=== PATIENT | female | born 1985 ===

== ENCOUNTER 2018-03-14 16:31 | Emergency (ER) | payer OTHER ==
[2018-03-14] MEDS ORDERED: Sodium Chloride 0.9% 1,000 ML IV STA (17:11)
--- NOTE | 2018-03-14 17:40 | ED PDOC ---
Arrival/HPI - General Chief Complaint: Headache Time Seen by Provider: 03/14/18 16:36 Historian: Patient - History of Present Illness Narrative History of Present Illness (Text): 03/14/18 17:36 32-year-old female presents today with a headache that started around noon today. Patient states the headache started in the right side of the forehead and over the right eye. Patient states the headache has been gradually increasing. Patient states there was a moment when she felt a period of blurred vision in the right eye. Patient is complaining of nausea no vomiting. She denies chest pain or shortness of breath. She denies neck pain. Denies fevers or chills. Patient states every once in a while she gets a headache but has never been associated with blurred vision before. Patient denies any blurred vision at present time. She denies urinary symptoms. She denies abdominal pain. She denies fevers. She denies back pain. She denies weakness or tingling in the extremities. No medications have been taken for pain at home. No other complaints. Past Medical History - Provider Review Nursing Documentation Reviewed: Yes - Travel History Have you recently traveled outside [place] w/in the past 3 mons?: No - Infectious Disease Hx of Infectious Diseases: None - Reproductive Menopause: No - Psychiatric Hx Substance Use: No - Anesthesia Hx Anesthesia: No - Suicidal Assessment Feels Threatened In Home Enviroment: No Family/Social History - Physician Review Nursing Documentation Reviewed: Yes Family/Social History: Unknown Family HX Smoking Status: Never Smoked Hx Alcohol Use: No Hx Substance Use: No Allergies/Home Meds Allergies/Adverse Reactions: Allergies No Known Allergies Allergy (Unverified 05/03/14 14:55) Review of Systems - Review of Systems Constitutional: absent: Fatigue, Fevers Eyes: Vision Changes (blurred vision in right eye; resolved). absent: Photophobia, Eye Pain Respiratory: absent: SOB, Cough Cardiovascular: absent: Chest Pain, Palpitations Gastrointestinal: Nausea. absent: Abdominal Pain, Constipation, Diarrhea, Vomiting Genitourinary Female: absent: Dysuria, Frequency Musculoskeletal: absent: Arthralgias, Back Pain, Neck Pain Skin: absent: Rash, Pruritis Neurological: Headache. absent: Dizziness Psychiatric: absent: Anxiety, Depression Physical Exam Vital Signs Reviewed: Yes Vital Signs Temp Pulse Resp BP Pulse Ox 03/14/18 19:25 98.4 F 69 16 142/87 100 03/14/18 16:35 98.4 F 76 18 130/81 99 03/14/18 16:32 98.4 F 76 18 130/81 99 Temperature: Afebrile Blood Pressure: Normal Pulse: Regular Respiratory Rate: Normal Appearance: Positive for: Well-Appearing, Non-Toxic, Comfortable Pain Distress: None Mental Status: Positive for: Alert and Oriented X 3 - Systems Exam Head: Present: Atraumatic Pupils: Present: PERRL Extroacular Muscles: Present: EOMI Conjunctiva: Present: Normal Ears: Present: Normal, NORMAL TM Mouth: Present: Moist Mucous Membranes Pharnyx: Present: Normal. No: ERYTHEMA, EXUDATE Nose (External): Present: Atraumatic Nose (Internal): Present: Normal Inspection Neck: Present: Normal Range of Motion, Trachea Midline. No: MIDLINE TENDERNESS , Paraspinal Tenderness Respiratory/Chest: Present: Clear to Auscultation, Good Air Exchange. No: Respiratory Distress, Accessory Muscle Use Cardiovascular: Present: Regular Rate and Rhythm, Normal S1, S2. No: Murmurs Abdomen: No: Tenderness, Rebound, Guarding Back: Present: Normal Inspection Upper Extremity: Present: Normal ROM Lower Extremity: Present: Normal ROM Neurological: Present: GCS=15, Speech Normal, Gait Normal Skin: Present: Warm, Dry, Normal Color. No: Rashes Psychiatric: Present: Alert, Oriented x 3 Medical Decision Making ED Course and Treatment: 03/14/18 17:39 32-year-old female with a headache that started at noon today. No medications have been taken for pain at home. Patient states the headache is located to the right fore head described as a throbbing sensation. No medications were taken for pain at home. Tylenol given by mouth CAT scan of the head:FINDINGS: BRAIN: Unremarkable. No hemorrhage. No significant white matter disease. No edema. VENTRICLES: Unremarkable. No ventriculomegaly. BONES/JOINTS: Unremarkable. No acute fracture. SOFT TISSUES: Unremarkable. SINUSES: 1.2cm polyp base right maxillary sinus. MASTOID AIR CELLS: Unremarkable as visualized. No mastoid effusion. IMPRESSION: 1.2cm polyp base right maxillary sinus. CBC: 12.6 CMP: wnl Urinalysis shows 2-5 white blood cells, moderate bacteria. Patient denies dysuria urinary frequency. 1 L normal saline IV bolus pt reassessment; after tylenol patient is feeling better. After negative head CT Toradol IV Patient reassessment: Patient is feeling much better. Denies headache dizziness or weakness. No neck or back pain. I've discussed results in depth with the patient advised patient to follow-up with the primary care physician/ENT specialist regarding polyp in the right maxillary sinus. I advised follow-up with the neurologist within the next 2 days Advised patient to return immediately if symptoms worsen persist or if new concerning symptoms develop. Advised patient take antibiotics twice daily 3 days for UTI. Patient verbalizes understanding of discharge instructions and need for immediate followup. all aspects of this case were discussed the attending of record. Impression: Headache, uti Motrin every 6 hours as needed for pain Bactrim on tablet twice daily 3 days Increase fluids Follow-up with the neurologist within the next 2 days Follow the primary care physician within the next 2 days Follow-up the ENT specialist within the next 2 days Return immediately if symptoms worsen persist or if new concerning symptoms develop - Lab Interpretations Lab Results: 03/14/18 17:34 03/14/18 17:34 Lab Results 03/14/18 18:18: Urine Color Light yellow, Urine Appearance Clear, Urine pH 6.0, Ur Specific [place] >= 1.030, Urine Protein Negative, Urine Glucose (UA) Negative, Urine Ketones Negative, Urine Blood Trace-intact H, Urine Nitrate Negative, Urine Bilirubin Negative, Urine Urobilinogen 0.2, Ur Leukocyte Esterase Negative, Urine RBC 0 - 2, Urine WBC 2 - 5, Ur Epithelial Cells 10 - 12 , Urine Bacteria Mod 03/14/18 18:08: Urine HCG, Qual Negative 03/14/18 17:34: WBC 12.6 H, RBC 4.79, Hgb 12.9, Hct 38.7, MCV 80.8, MCH 26.9, MCHC 33.3, RDW 14.1, Plt Count 355, MPV 10.0, Gran % 83.7 H, Lymph % (Auto) 11.6 L, [place] % (Auto) 4.1, Eos % (Auto) 0.4 L, Baso % (Auto) 0.2, Gran # 10.57 H , Lymph # (Auto) 1.5, [place] # (Auto) 0.5, Eos # (Auto) 0.1, Baso # (Auto) 0.02 03/14/18 17:34: Sodium 142, Potassium 3.9, Chloride 103, Carbon Dioxide 27, Anion Gap 15, BUN 15, Creatinine 0.6 L, Est GFR ( Amer) > 60, Est GFR ( Non-Af Amer) > 60, Random Glucose 100, Calcium 9.3, Total Bilirubin 0.4, AST 23 , ALT 19, Alkaline Phosphatase 90, Total Protein 8.0, Albumin 4.4, Globulin 3.6 , Albumin/Globulin Ratio 1.2 - RAD Interpretation Radiology Orders: 03/14/18 17:11 HEAD W/O CONTRAST [CT] Stat - Medication Orders Current Medication Orders: Discontinued Medications Acetaminophen (Tylenol 325mg Tab) 975 mg PO STAT STA Stop: 03/14/18 17:12 Last Admin: 03/14/18 17:27 Dose: 975 mg [facility] Pain/Vitals Document 03/14/18 17:27 SRE (Rec: 03/14/18 17:28 SRE [place] [id number]) Pain Reassessment Is This A Pain ReAssessment? Yes Sleep Is patient sleeping during reassessment? No Presence of Pain Presence of Pain Yes Pain Scale Used Pain Scale Used Numeric Location Pain Location Body [employer] Unit Operator Description Intermittent Intensity 4 Scale Used Numeric Re-Assess: MAR Pain/Vitals Document 03/14/18 18:27 SRE (Rec: 03/14/18 19:32 SRE [place] [id number]) Pain Reassessment Is This A Pain ReAssessment? Yes Sleep Is patient sleeping during reassessment? No Presence of Pain Presence of Pain Yes Pain Scale Used Pain Scale Used Numeric Location Pain Location Body Catalyst Unit Operator Description Intermittent Intensity 2 Scale Used Numeric Sodium Chloride (Sodium Chloride 0.9%) 1,000 mls @ 999 mls/hr IV .Q1H1M STA Stop: 03/14/18 18:11 Last Admin: 03/14/18 17:27 Dose: 999 mls/hr eMAR Start Stop Document 03/14/18 17:27 SRE (Rec: 03/14/18 17:27 SRE [place] [id number]) Intravenous Solution Start Date 03/14/18 Start Time 17:27 End Date 03/14/18 End time 18:30 Total Infusion Time 63 Disposition/Present on Arrival - Present on Arrival Any Indicators Present on Arrival: No History of DVT/PE: No History of Uncontrolled Diabetes: No Urinary Catheter: No History of Decub. Ulcer: No History Surgical Site Infection Following: None - Disposition Have Diagnosis and Disposition been Completed?: Yes Diagnosis: Headache, Urinary tract infection Disposition: HOME/ ROUTINE Disposition Time: 20:19 Patient Plan: Discharge Condition: GOOD Discharge Instructions (ExitCare): Headache, Adult Additional Instructions: Motrin every 6 hours as needed for pain Bactrim on tablet twice daily 3 days Increase fluids Follow-up with the neurologist within the next 2 days Follow the primary care physician within the next 2 days Follow-up the ENT specialist within the next 2 days Return immediately if symptoms worsen persist or if new concerning symptoms develop Prescriptions: Ibuprofen [Motrin] 600 mg PO Q6H PRN #20 tab PRN Reason: pain/fever reduction Sulfamethoxazole/Trimethoprim [Bactrim DS 800 mg-160 mg] 1 tab PO BID #6 tab Referrals: Doe Zhao MD [Primary Care Provider] - Follow up with primary Archie Mendez MD [Staff Provider] - Follow up with primary Aguilar Saleh DO [Staff Provider] - Follow up with primary Forms: [employer] ([place]), WORK NOTE
[2018-03-14 17:52] LABS: ALB/GLOB RATIO 1.2 (1.1-1.8); ALBUMIN 4.4 g/dL (3.0-4.8); ALT/SGPT 19 U/L (7-56); AST/SGOT 23 U/L (14-36); BLOOD UREA NITROGEN 15 mg/dL (7-21); CALCIUM 9.3 mg/dL (8.4-10.5); GFR NON-AFRICAN AMERICAN > 60
[2018-03-14 17:54] LABS: BASO # 0.02 K/mm3 (0.0-2.0); BASO % 0.2 % (0.0-3.0); EOS # 0.1 (0.0-0.7); EOS % 0.4 % (1.5-5.0); GRAN # 10.57 (1.4-6.5); GRAN % 83.7 % (50.0-68.0); HEMOGLOBIN 12.9 g/dL (12.0-16.0); LYMPH # 1.5 (1.2-3.4); LYMPH % 11.6 % (22.0-35.0); MEAN CELL VOLUME 80.8 fl (80.0-105.0); MEAN CORPUSCULAR HEMOGLOBIN 26.9 pg (25.0-35.0); MEAN CORPUSCULAR HGB CONC 33.3 g/dl (31.0-37.0); MONO # 0.5 (0.1-0.6); MONO % 4.1 % (1.0-6.0); RBC 4.79 10^6/uL (3.5-6.1); RED CELL DISTRIBUTION WIDTH 14.1 % (11.5-14.5); WHITE BLOOD COUNT 12.6 10^3/ul (4.5-11.0)
[2018-03-14 18:22] LABS: URINE BILIRUBIN NEGATIVE (NEGATIVE); URINE BLOOD TRACE-INTACT (NEGATIVE); URINE GLUCOSE (UA) NEGATIVE (NEGATIVE); URINE LEUKOCYTE ESTERASE NEGATIVE Leu/uL (NEGATIVE); URINE PROTEIN NEGATIVE mg/dL (<30 mg/dL); URINE UROBILINOGEN 0.2 E.U./dL (<1 E.U./dL)
[2018-03-14 18:23] LABS: URINE APPEARANCE CLEAR (CLEAR); URINE COLOR LIGHT YELLOW (YELLOW)
[2018-03-14 18:32] LABS: URINE RBC 0 - 2 /hpf (0-2)
[2018-03-14 18:35] LABS: URINE BACTERIA MOD (NEG)
[2018-03-14 19:31] VITALS: RESP 16
[2018-03-14 20:30] VITALS: BP 134/7; PULSE 64; TEMP 98; O2SAT 99
--- NOTE | 2018-03-15 07:24 | CT ---
Date of service: 03/14/2018 PROCEDURE: CT HEAD WITHOUT CONTRAST. HISTORY: headache COMPARISON: None available. TECHNIQUE: Axial computed tomography images were obtained through the head/brain without intravenous contrast. Radiation dose: Total exam DLP = mGy-cm. This CT exam was performed using one or more of the following dose reduction techniques: Automated exposure control, adjustment of the mA and/or kV according to patient size, and/or use of iterative reconstruction technique. FINDINGS: HEMORRHAGE: No intracranial hemorrhage. BRAIN: No mass effect or edema. No atrophy or chronic microvascular ischemic changes. VENTRICLES: Unremarkable. No hydrocephalus. CALVARIUM: Unremarkable. PARANASAL SINUSES: Unremarkable as visualized. No significant inflammatory changes. MASTOID AIR CELLS: Unremarkable as visualized. No inflammatory changes. OTHER FINDINGS: None. IMPRESSION: Normal CT of the Head.
== END 2018-03-14 20:29 | disposition home or self-care (01) ==
LOC: ED 16:31
DX: N39.0 Urinary tract infection, site not specified (principal); R51 Headache
CPT/HCPCS: 70450; 80053; 81001; 84703; 85025; 96361; 96374; 99285; J1885; J7030